=== PATIENT | female | born 1950 | race Caucasian/White ===

== ENCOUNTER → 2017-11-29 | Outpatient (CLI) | payer MEDICARE ==
--- NOTE | 2017-11-30 16:17 | RADIOLOGY IMAGING REPORT ---
FACILITY: [facility] [place] PATIENT NAME: CATA HUGHES : [id number] MR: [id number]: [id number] EXAM DATE: [id number] ORDERING PHYSICIAN: MACY HAQ TECHNOLOGIST: Jenelle Noble PROCEDURE:BILATERAL DIGITAL SCREENING MAMMOGRAM WITH CAD ASSISTED INTERPRETATION & 3D TOMOSYNTHESIS COMPARISON:Prior mammograms 11/02/11 INDICATIONS:SCREENING BREAST IMPLANTS FINDINGS: Bilateral prepectroal silicone implants as before. Scattered fibroglandular tissue. Breast density has decreased compared to prior. A few benign Right breast microcalcifications are present which exhibit different position compared to prior secondary to positional differences on CC view. No significant mass, microcalcifications or architectural distortion. No significant change compared to prior. DIAGNOSTIC CATEGORY 2--BENIGN FINDING. RECOMMENDATIONS: ROUTINE MAMMOGRAM AND CLINICAL EVALUATION. IMPRESSION: BIRADS 2: Benign finding Annual mammographic screening recommended. Dictated by: Earl White on 11/30/2017 at 10:22 Transcribed by: WHITNEY on 11/30/2017 at 11:17 Approved by: Earl White on 11/30/2017 at 16:16 [facility]
== END ==
LOC: MAMO 15:12
PROVIDERS: ATTEND Obstetrics & Gynecology
DX: Z12.31 Encounter for screening mammogram for malignant neoplasm of breast (principal); Z98.82 Breast implant status; R92.1 Mammographic calcification found on diagnostic imaging of breast
CPT/HCPCS: 77063; 77067